=== PATIENT | male | born 1980 | race Caucasian/White ===

== ENCOUNTER → 2017-03-20 15:52 | Outpatient (CLI) | payer MEDICAID, SELFPAY | PROVIDERS: Family Provider Family Medicine; PCP Family Medicine; Visit Provider Otolaryngology | DX: J02.9 Acute pharyngitis, unspecified (principal) | CPT/HCPCS: 87070; 87077 ==

== ENCOUNTER → 2018-06-09 07:30 | Outpatient (CLI) | payer MEDICAID, SELFPAY ==
--- NOTE | 2018-06-09 11:47 | NEURO ---
NCS and/or EMG Patient Report Ordering Doctor: Francois Arias Jr. DATE OF SERVICE: 06/09/18 This is a bilateral upper extremity nerve conduction study and a right upper extremity EMG performed on this 37-year-old male who 8 years ago he had a upper back injury, now experiences abnormal sensations in his first 3 digits of both hands. Bilateral upper extremity sensory and motor nerve conduction studies were performed demonstrating prolongation of the median motor and sensory distal latencies with preservation of amplitudes but mild reduction of conduction velocity bilaterally. The ulnar motor and sensory and radial sensory responses are normal. The median F wave latencies are mildly prolonged compared to the ulnar F-wave latencies. Right upper extremity needle electromyography is performed. Muscles evaluated included the first dorsal interosseous, abductor pollicis brevis, brachioradialis, biceps, triceps and deltoid muscles. The abductor pollicis brevis muscles did demonstrate large motor units with 1+ fibrillation potentials. All other muscles tested demonstrated normal insertional activity with absence of pathologic spontaneous activity. Motor unit potential recruitment pattern and amplitude was otherwise normal. Impression: Abnormal electrophysiologic study of the upper extremities consistent with moderate carpal tunnel syndrome bilaterally at the wrists.
== END ==
PROVIDERS: Family Provider Family Medicine; PCP Family Medicine; Referring Provider Family Medicine; Visit Provider Family Medicine
DX: M54.12 Radiculopathy, cervical region (principal)
CPT/HCPCS: 95886; 95911

== ENCOUNTER → 2018-11-03 10:27 | Outpatient (CLI) | payer MEDICAID, SELFPAY ==
[2016-07-15 13:22] VITALS: BMI 20.8
[2018-11-03 12:55] LABS: ALB/GLOB Ratio 1.3 RATIO (0.9-2.4); AST(SGOT) 23 U/L (15-37); Alanine Aminotransfer ALT/SGPT 27 U/L (16-61); Albumin, Serum 4.3 g/dL (3.2-5.0); Alkaline Phosphatase 76 U/L (45-117); Anion Gap 9 (5-15); BUN 12 mg/dL (7-18); BUN/Creat Ratio 12.5 RATIO (10-20); Calcium,Total 9.3 mg/dL (8.5-10.1); Chloride 105 mmol/L (98-107); Cholesterol 184 mg/dL (200); Creatinine, Serum 0.96 mg/dL (0.70-1.30); EST Glomerular Filtration Rate 94 mL/min (>60); Est Glom Filt Rate - Afr Amer 114 mL/min (>60); Globulin 3.4 g/dL (2.2-4.2); Glucose 77 mg/dL (74-106); High Density Lipoprotein 49 mg/dL; Protein, Total 7.7 g/dL (6.4-8.2); Sodium Level 140 mmol/L (136-145); Thyroid Stim Hormone (TSH) 1.39 uIU/mL (0.358-3.74); Triglycerides 53 mg/dL; Very Low Density Lipoprotein 11 mg/dL (5-40)
[2018-11-06 03:06] LABS: Beef <0.10 kU/L (Class 0); Corn <0.10 kU/L (Class 0); Egg, Whole <0.10 kU/L (Class 0); Milk (Cow) <0.10 kU/L (Class 0); Peanut <0.10 kU/L (Class 0); Pork <0.10 kU/L (Class 0); Soybean <0.10 kU/L (Class 0); Wheat <0.10 kU/L (Class 0)
[2018-11-08 10:12] LABS: Chocolate <0.10 kU/L (Class 0)
== END ==
PROVIDERS: Family Provider Family Medicine; PCP Family Medicine; Referring Provider Family Medicine; Visit Provider Family Medicine
DX: Z00.00 Encounter for general adult medical examination without abnormal findings (principal); T78.40XA Allergy, unspecified, initial encounter
CPT/HCPCS: 36415; 80053; 80061; 84403; 84443; 86003; 86005

== ENCOUNTER → 2019-08-29 08:39 | Outpatient (CLI) | payer MEDICAID, SELFPAY ==
[2019-08-11 09:06] VITALS: BMI 20.8
--- NOTE | 2019-08-29 08:42 | CT_ITS ---
STUDY: CT BRAIN AND SINUSES WITHOUT CONTRAST REASON FOR EXAM: Male, 38 years old. SINUSITIS RADIATION DOSAGE (If Supplied By Facility): CTDIvol = ( 33.06 ) mGy, DLP = ( 871.04 ) mGycm TECHNIQUE: Transaxial CT imaging of the brain was performed without administration of contrast. Individualized dose optimization techniques were used for this CT. COMPARISON: Comparison is made with prior study dated June 07, 1999 FINDINGS: CT BRAIN Normal soft tissue structures. Normal calvarium. Normal size ventricles and extra-axial spaces for the patient''s age. Normal white matter tracts of the cerebral hemispheres. Normal basal ganglia and thalami. Normal brainstem. Normal cerebellum. There is no intracranial hemorrhage. There are no findings of an acute ischemic infarction. CT SINUSES Post Surgical Changes: Prior partial resection of the medial bettencourt of the maxillary sinuses bilaterally. Frontal Sinus and Recess: Complete opacification of the frontal sinuses. Ethmoidal Sinuses: Complete opacification of the ethmoid sinuses with thinning of the bony septations. Maxillary Sinuses: Opacification of the maxillary sinuses bilaterally. Ostiomeatal Complex: Mucosal obliteration of the bilateral maxillary infundibuli. Sphenoid Sinus: Opacification of the sphenoid sinus bilaterally. Sphenoethmoidal Recess: Clear. Nasal Turbinate (Right): Middle Turbinate (Right): Normal. Middle Turbinate (Left): Normal. Inferior Turbinate (Right): Hypertrophy of the right inferior nasal turbinate. Inferior Turbinate (Left): Normal. Nasal Septum: Midline. Nasal Airway: Soft tissue obliteraion of the right nasal airway suggesting polyps. Direct visualization recommended. Cribiform Plate / Anterior Cranial Fossa: Normal. Orbits: Normal. CT/Sinus/Facial Bone IMPRESSION: Pansinusitis. Electronically Signed: Julian Godoy, at 10:03 EDT , Service support ,
== END ==
PROVIDERS: PCP Family Medicine; Referring Provider Otolaryngology; Visit Provider Otolaryngology
DX: J32.9 Chronic sinusitis, unspecified (principal)
CPT/HCPCS: 70486

== ENCOUNTER 2019-09-20 06:03 | Day surgery (SDC) | payer MEDICAID, SELFPAY ==
[2019-08-11 09:06] VITALS: BMI 20.8
[2019-09-15 09:58] LABS: Anion Gap 3 (5-15); BUN 15 mg/dL (7-18); BUN/Creat Ratio 13.6 RATIO (10-20); Chloride 104 mmol/L (98-107); EST Glomerular Filtration Rate 80 mL/min (>60); Est Glom Filt Rate - Afr Amer 96 mL/min (>60); Glucose 111 mg/dL (74-106); Potassium 4.2 mmol/L (3.5-5.1); Sodium Level 136 mmol/L (136-145)
[2019-09-20 06:25] VITALS: BP 116/80; PULSE 67; RESP 16; TEMP 36.3; O2SAT 98; BMI 22.8
[2019-09-20] MEDS: Lactated Ringers 1,000 ML 100 ML IV (06:49)
--- NOTE | 2019-09-20 07:24 | DCINST_ITS ---
You will use the following diet at home:: No restrictions Discharge Activity: Return to Normal Activity Call your doctor if your incision/area has: Sudden Increased Bleeding Additional Dressing/Incision Instructions:: irrigate nose 5 times/day with saline spray Allergies/Adverse Reactions: Allergies amoxicillin [From Augmentin] Allergy (Verified 09/20/19 06:22) Unknown ciprofloxacin [From Cipro] Allergy (Verified 09/20/19 06:22) Hives ciprofloxacin HCl [From Cipro] Allergy (Verified 09/20/19 06:22) Hives clavulanic acid [From Augmentin] Allergy (Verified 09/20/19 06:22) Unknown ibuprofen Allergy (Verified 09/20/19 06:22) Nausea/Vom/Diarrhea levofloxacin [From Levaquin] Allergy (Verified 09/20/19 06:22) Pain in joints sulfamethoxazole [From Bactrim] Allergy (Verified 09/20/19 06:22) Hives trimethoprim [From Bactrim] Allergy (Verified 09/20/19 06:22) Hives Medications to take at Discharge diphenhydramine HCl 25 mg capsule 25 mg PO QHS 12/20/18 albuterol sulfate 90 mcg/actuation aerosol inhaler 1 inh INHALATION BID PRN PRN 03/25/19 fluticasone propionate 44 mcg/actuation HFA aerosol inhaler 1 puff INHALATION BID PRN 03/25/19 levocetirizine 5 mg tablet 5 mg PO DAILY 03/25/19 Cetirizine HCl [Zyrtec] 10 mg PO DAILY 09/12/19 Omeprazole 20 mg PO DAILY 09/12/19 Primary Care Physician: Marco Anotnio Simpson MD [Primary Care Provider] - Test Results: Test results from this visit will be discussed in further detail at your follow- up appointment, if applicable. Please Follow Up With: Raj Spivey MD When: 1 week
--- NOTE | 2019-09-20 07:25 | PCM.OPRPT ---
Problem List (1) Chronic pansinusitis Status: Chronic Report of Operation Date of Procedure: 09/20/19 Pre-Operative Diagnosis: 1. chronic pansinusitis. 2. chronic serous otitis Post-Operative Diagnosis: 1. chronic pansinusitis. 2. chronic serous otitis Surgery/Procedure Performed:: 1. revision endoscopic maxillary antrostomy with removal of contents, right and left. 2. revision total ethmoidectomy with sphenoidotomy, removal of contents, right and left. 3. placement of pressure equalization tubes, right and left. 4. CT guided image navigation Type of Anesthesia:: General Description of Procedure: on the day of the procedure, after appropriate informed consent was obtained, the patient was brought to the operating room and placed in supine position on the operating table. he was placed under general endotracheal anesthesia. the endotracheal tube was secured, the eyes were taped. the left ear was examined by the binocular operating microscope. a speculum was placed. the tympanic membrane was viewed in its entirety and found to be intact with severe myringosclerosis. a radial myringotomy was made and a T tube was placed. the right ear was examined by the binocular operating microscope. a speculum was placed. the tympanic membrane was viewed in its entirety and found to be intact with severe myringosclerosis. a radial myringotomy was made and a T tube was placed. the CT image navigation was set up and accuracy confirmed. the bilateral nasal cavities were decongested with oxymetazoline soaked pledgets. the zero degree endoscope was used to evaluate the left nasal cavity. a large amount of middle meatus polyps were removed with the microdebrider. the maxillary antrostomy was revised with a back biter. polyps were removed. a revision total ethmoidectomy was performed with the microdebrider superiorly to the skull base and laterally to the lamina. a stankewicz maneuver was performed and no laminar defect was noted. a revision sphenoidotomy was performed with the microdebrider and polyps were removed. an upgoing blakesley was used to clear out the frontal recess. hemostasis was achieved with suction cautery and pledgets were placed. the zero degree endoscope was used to evaluate the right nasal cavity. a large amount of middle meatus polyps were removed with the microdebrider. the maxillary antrostomy was revised with a back biter. polyps were removed. a revision total ethmoidectomy was performed with the microdebrider superiorly to the skull base and laterally to the lamina. a stankewicz maneuver was performed and no laminar defect was noted. a revision sphenoidotomy was performed with the microdebrider and polyps were removed. an upgoing blakesley was used to clear out the frontal recess. hemostasis was achieved with suction cautery and pledgets were placed. the patient was awoken from anesthesia and transferred to the PACU in stable condition.
--- NOTE | 2019-09-20 07:30 | ETH_PTH ---
PATIENT: MONALISA CORONA LOC: [facility] [place] U#:[id number] AGE/SX: 38/M ROOM: RE09/20/[address]: Dr. Pantera Spivey MD : 1980 BED: DIS: 09/20/2019 SPEC #: [id number] RECD: 09/20/19 08:58 STATUS: CHRISTOFER CHRISTINA #: [id number] ETHAN: 09/20/19 07:[address]: Pantera Spivey DEPT: SURGICAL PATHOLOGY RECD BY: Tete Lozada ENTERED: 09/20/19 14:41 SP TYPE: ETH TISS OTHR DR: Dr. Marco Antonio Simpson MD Tissues: A - Ethmoid sinus, NOS B - Ethmoid sinus, NOS Procedures: Surgery Specimen Level III HEADER OPERATION: Revision sinus surgery, Navigation PRE-OP DIAGNOSIS: Chronic serous otitis media, bilateral chronic pansinusitis TISSUE SUBMITTED: A - Right sinus contents, B - Left sinus contents MICROSCOPIC DIAGNOSIS A. Right sinus contents, excision: Consistent with chronic sinusitis. B. Left sinus contents, excision: Consistent with chronic sinusitis. AM:michael 09/21/19 MICROSCOPIC DESCRIPTION Slides are reviewed. GROSS DESCRIPTION A - Received in fixative is one container labeled with the patient's name and designated right sinus contents. The specimen consists of multiple irregular fragments of light saunders soft tissue that in aggregate measure 5 x 2 x 0.2 cm. The specimen is totally submitted in one cassette. B - Received in fixative is one container labeled with the patient's name and designated left sinus contents. The specimen consists of multiple irregular fragments of light saunders soft tissue that in aggregate measure 2 x 1.5 x 0.1 cm. The specimen is totally submitted in one cassette. / AM:michael 09/20/19 TC:3 [facility]: [id number] x2
[2019-09-20] MEDS: Oxymetazoline 0.05% 1 SPRAY SPRAY.BTL 15 SPRAY (08:16)
[2019-09-20 08:45] VITALS: BP 116/80; BP 135/93; PULSE 76; RESP 16; TEMP 36.3; O2SAT 97
[2019-09-20 09:00] VITALS: BP 116/80; BP 128/97; PULSE 70; RESP 16; O2SAT 99
[2019-09-20 09:15] VITALS: BP 116/80; BP 131/87; PULSE 98; RESP 16; TEMP 36.5; O2SAT 98
[2019-09-20] MEDS: Acetaminophen 325 MG Tablet 650 MG PO (09:47)
[2019-09-20 10:15] VITALS: BP 116/80; BP 122/82; PULSE 56; RESP 18; TEMP 37.4; O2SAT 99
== END 2019-09-20 10:16 | disposition home or self-care (01) ==
LOC: SDC 06:03 → AC 06:03
PROVIDERS: Anesthesiology; PCP Family Medicine; Referring Provider Otolaryngology; Visit Provider Otolaryngology
PROC: (CPT 31257; principal; 2019-09-20 07:00)
PROC: (CPT 31257; 2019-09-20 07:00)
DX: J32.4 Chronic pansinusitis (principal); H65.23 Chronic serous otitis media, bilateral; Z11.59 Encounter for screening for other viral diseases; J45.909 Unspecified asthma, uncomplicated; K58.9 Irritable bowel syndrome, unspecified; K21.9 Gastro-esophageal reflux disease without esophagitis; Z79.899 Other long term (current) drug therapy; Z87.891 Personal history of nicotine dependence
CPT/HCPCS: 31257; 31267; 69436; 36415; 80048; 87635; 88304; 88305; G2023; J7120; J2405; U0003

== ENCOUNTER → 2019-12-19 11:58 | Outpatient (CLI) | payer MEDICAID, SELFPAY ==
--- NOTE | 2019-12-19 12:00 | RAD_ITS ---
STUDY: X-RAY - ABDOMEN/PELVIS REASON FOR EXAM: Male, 39 years old. right lower abd pain into groin TECHNIQUE: 3 AP views of the abdomen/pelvis. COMPARISON: None. FINDINGS: Normal visualized lung bases. Constipation. Nonobstructive bowel gas pattern. Normal soft tissue structures. Normal visualized osseous structures. RAD/Abd Inc Decub and/or Erect IMPRESSION: Constipation with nonobstructive bowel gas pattern Electronically Signed: Raghu Levin DO at 11:25 EDT Tel , Service support ,
== END ==
PROVIDERS: PCP Family Medicine; Referring Provider Family Medicine; Visit Provider Family Medicine
DX: R10.31 Right lower quadrant pain (principal)
CPT/HCPCS: 74019

== ENCOUNTER → 2019-12-22 | Outpatient (CLI) | payer MEDICAID, SELFPAY ==
[2019-12-22 12:10] LABS: Bacteria 0 SEEN /hpf (None Seen); Mucous, Urine 0 SEEN /hpf (<or=2+); Red Blood Cells-Urine 0 SEEN /hpf (0-5); White Blood Cells 0 SEEN /hpf (0-5)
[2019-12-22 15:27] LABS: Color, Urine Yellow (Yellow); Glucose, Dipstick Normal (Normal); Ketone-Dipstick Negative (Negative); Leukocyte Esterase-Dipstick Negative /ul (Negative); Nitrite-Dipstick Negative (Negative); Occult Blood-Urine Negative /ul (Negative); Protein-Dipstick Negative (Negative); Specific Gravity, Urine 1.005 (1.002-1.030); Urine Bilirubin Dipstick Negative (Negative); Urine Clarity Clear (Clear); Urine Urobilinogen Normal (Normal)
[2019-12-22 15:35] LABS: Squamous Epithelial Cells - UA 0-5 SEEN /hpf (0-5)
== END | disposition home or self-care (01) ==
LOC: LABSPEC 12:08
PROVIDERS: PCP Family Medicine; Referring Provider Family Medicine; Visit Provider Family Medicine
DX: R31.9 Hematuria, unspecified (principal)
CPT/HCPCS: 81001; 87086

== ENCOUNTER 2020-01-02 06:01 | Day surgery (SDC) | payer MEDICAID, SELFPAY ==
[2019-12-27 15:35] VITALS: BMI 23.2
--- NOTE | 2020-01-02 05:50 | HP_ITS ---
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 Required: No Is patient in pain?: No Allergies amoxicillin [From Augmentin] Allergy (Verified 12/27/19 15:36) Unknown ciprofloxacin [From Cipro] Allergy (Verified 12/27/19 15:36) Hives ciprofloxacin HCl [From Cipro] Allergy (Verified 12/27/19 15:36) Hives clavulanic acid [From Augmentin] Allergy (Verified 12/27/19 15:36) Unknown ibuprofen Allergy (Verified 12/27/19 15:36) Nausea/Vom/Diarrhea levofloxacin [From Levaquin] Allergy (Verified 12/27/19 15:36) Pain in joints sulfamethoxazole [From Bactrim] Allergy (Verified 12/27/19 15:36) Hives trimethoprim [From Bactrim] Allergy (Verified 12/27/19 15:36) Hives codeine Adverse Reaction (Verified 12/27/19 15:36) Vomiting Medications diphenhydramine HCl 25 mg capsule 25 mg PO QHS 12/20/18 [History Confirmed 12/27/19] albuterol sulfate 90 mcg/actuation aerosol inhaler 1 inh INHALATION BID PRN PRN 03/25/19 [History Confirmed 12/27/19] fluticasone propionate 44 mcg/actuation HFA aerosol inhaler 1 puff INHALATION BID PRN 03/25/19 [History Confirmed 12/27/19] levocetirizine 5 mg tablet 5 mg PO DAILY 03/25/19 [History Confirmed 12/27/19] Cetirizine HCl [Zyrtec] 10 mg PO DAILY 09/12/19 [History Confirmed 12/27/19] Omeprazole 20 mg PO DAILY 09/12/19 [History Confirmed 12/27/19] [facility] Medical History Family history of colonic polyps (Acute) Family history of malignant neoplasm of colon in father (Acute) Allergies (Acute) Arthritis (Acute) Carpal tunnel syndrome (Acute) IBS (irritable bowel syndrome) (Acute) Syrinx of spinal cord (Acute) Surgical History History of appendectomy (Acute) History of cholecystectomy (Acute) History of placement of ear tubes (Acute) History of sinus surgery (Acute) Family History Father Colon cancer at age 48 Grandmother Colon cancer Aunt Colon cancer Other Heart disease Hypertension Social History (Updated 12/27/19 @ 15:[address] Dino Arias MD) Smoking Status: Former smoker alcohol intake: never substance use type: does not use caffeine: No what type of physical activity do you participate in: none HPI HPI HPI: MONALISA CORONA, is a 39 M who presents to the office today for ongoing consideration for a screening colonoscopy. I saw this patient July 2019. At that point I recommended to him a colonoscopy with possible biopsy or polypectomy as indicated. That was based upon the fact that his father had colon cancer at age 38. The patient also has a sister who had a premalignant polyp removed at age 40. He is noting some slight twinging discomfort in the right lower quadrant particular when he bends over. Thinks he might have a hernia. He had some abdominal films done on December 19, 2019 but those were not remarkable. Possible some constipation. He has not noticed any bright red blood per rectum or melena. He has had recent surgery by Dr. Price removal of the nasal polyps. He claims that for at least 3 years he has had loss of smell. That is currently slightly improved. 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 He frequently has sore low back pain. HPI HPI HPI: MONALISA CORONA, is a 39 M who presents to the office today for ROS General General: No weight change, appetite, fatigue, colon cancer or breast cancer HEENT HEENT: No difficulty swallowing, eye injury, eye surgery, swollen glands or hoarseness Endo Endocrine: No thyroid disease, diabetes mellitus, thyroid cancer, Hair loss, heat intolerance or cold intolerance Skin Skin: Yes rash; no changing moles Musc Musculoskeletal: Yes back problems and arthritis; no rheumatoid arthritis, gout or joint pain Cardio Cardiovascular: No murmur, pacemaker, heart disease, atrial fibrillation, high blood pressure, heart attack, heart stent, palpitations, shortness of breat with exertion or chest pain Psych Psychiatric: Yes depression and anxiety; no hearing voices Resp Respiratory: No shortness of breath, No sleep apnea, No cough, No COPD, Yes asthma, No emphysema, No wheezing Gastro Gastrointestinal: No abdominal pain, No nausea or vomiting, No diarrhea, No constipation, No blood in stool, Yes acid reflux, No hemorrhoids, No ulcers, No gallbladder problem, No black,tarry stools Amrtin Hematologic: No blood thinners, No blood disorders, No bleeding, No anemia, No blood clots Exam Const General: cooperative, healthy appearing, comfortable, no acute distress Nutritional Appearance: average body habitus Orientation: alert, awake HENMT Head: normal to inspection Resp Effort & Inspection: normal respiratory effort Auscultation: clear to auscultation bilaterally Cardio Rate: regular rate Rhythm: regular rhythm Heart Sounds: no murmurs GI Palpation: soft, no hepatosplenomegaly Auscultation: normal bowel sounds Other: Testicles are descended. No tenderness. No mass. I do not detect any varicoceles. I do not detect any inguinal weakness bilaterally. Right femoral pulse 3+. No tenderness at the femoral canal Skin General: no rashes or lesions noted Neuro Cognition: normal cognition Extrem General: no calf tenderness Psych Affect: normal affect Assessment & Plan Problems 1. Family history of malignant neoplasm of colon in father Z80.0 Plan Based upon family history of colon cancer I recommend to the patient a colonoscopy with possible biopsy or polypectomy as indicated. He is aware of the technique, benefit, risk, alternatives. We we will utilize a day and a half bowel prep to assure that he is well cleaned out. I anticipate using monitored anesthesia care. He has had an opportunity to ask and have questions answered. The right lower quadrant pinching distal sensation unclear. Initially I thought he might have a varicocele or possibly a hernia. I cannot detect either on clinical examination. This point the patient's symptoms do not appear to be severe. He will notify us if symptoms or findings change. I appreciate the ongoing opportunity of assisting with his surgical care Copy: Dr. Marco Antonio Arias M.D., F.A.C.S. Plan Detail Goals Decrease spasm Improve ROM Decrease pain Barriers Syrinx Construction work Coding Level of Care Code Off vis,est,level 2 Diagnoses Family history of malignant neoplasm of colon in father Z80.0
--- NOTE | 2020-01-02 06:16 | HP.PCM_ITS ---
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 Is patient in pain?: No Allergies amoxicillin [From Augmentin] Allergy (Verified 12/27/19 15:36) Unknown ciprofloxacin [From Cipro] Allergy (Verified 12/27/19 15:36) Hives ciprofloxacin HCl [From Cipro] Allergy (Verified 12/27/19 15:36) Hives clavulanic acid [From Augmentin] Allergy (Verified 12/27/19 15:36) Unknown ibuprofen Allergy (Verified 12/27/19 15:36) Nausea/Vom/Diarrhea levofloxacin [From Levaquin] Allergy (Verified 12/27/19 15:36) Pain in joints sulfamethoxazole [From Bactrim] Allergy (Verified 12/27/19 15:36) Hives trimethoprim [From Bactrim] Allergy (Verified 12/27/19 15:36) Hives codeine Adverse Reaction (Verified 12/27/19 15:36) Vomiting Medications diphenhydramine HCl 25 mg capsule 25 mg PO QHS 12/20/18 [History Confirmed 12/27/19] albuterol sulfate 90 mcg/actuation aerosol inhaler 1 inh INHALATION BID PRN PRN 03/25/19 [History Confirmed 12/27/19] fluticasone propionate 44 mcg/actuation HFA aerosol inhaler 1 puff INHALATION BID PRN 03/25/19 [History Confirmed 12/27/19] levocetirizine 5 mg tablet 5 mg PO DAILY 03/25/19 [History Confirmed 12/27/19] Cetirizine HCl [Zyrtec] 10 mg PO DAILY 09/12/19 [History Confirmed 12/27/19] Omeprazole 20 mg PO DAILY 09/12/19 [History Confirmed 12/27/19] [facility] Medical History Family history of colonic polyps (Acute) Family history of malignant neoplasm of colon in father (Acute) Allergies (Acute) Arthritis (Acute) Carpal tunnel syndrome (Acute) IBS (irritable bowel syndrome) (Acute) Syrinx of spinal cord (Acute) Surgical History History of appendectomy (Acute) History of cholecystectomy (Acute) History of placement of ear tubes (Acute) History of sinus surgery (Acute) Family History Father Colon cancer at age 48 Grandmother Colon cancer Aunt Colon cancer Other Heart disease Hypertension Social History (Updated 12/27/19 @ 15:[address] Dino Arias MD) Smoking Status: Former smoker alcohol intake: never substance use type: does not use caffeine: No what type of physical activity do you participate in: none HPI HPI HPI: MONALISA CORONA, is a 39 M who presents to the office today for ongoing consideration for a screening colonoscopy. I saw this patient July 2019. At that point I recommended to him a colonoscopy with possible biopsy or polypectomy as indicated. That was based upon the fact that his father had colon cancer at age 38. The patient also has a sister who had a premalignant polyp removed at age 40. He is noting some slight twinging discomfort in the right lower quadrant particular when he bends over. Thinks he might have a hernia. He had some abdominal films done on December 19, 2019 but those were not remarkable. Possible some constipation. He has not noticed any bright red blood per rectum or melena. He has had recent surgery by Dr. Price removal of the nasal polyps. He claims that for at least 3 years he has had loss of smell. That is currently slightly improved. 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 He frequently has sore low back pain. HPI HPI HPI: MONALISA CORONA, is a 39 M who presents to the office today for ROS General General: No weight change, appetite, fatigue, colon cancer or breast cancer HEENT HEENT: No difficulty swallowing, eye injury, eye surgery, swollen glands or hoarseness Endo Endocrine: No thyroid disease, diabetes mellitus, thyroid cancer, Hair loss, heat intolerance or cold intolerance Skin Skin: Yes rash; no changing moles Musc Musculoskeletal: Yes back problems and arthritis; no rheumatoid arthritis, gout or joint pain Cardio Cardiovascular: No murmur, pacemaker, heart disease, atrial fibrillation, high blood pressure, heart attack, heart stent, palpitations, shortness of breat with exertion or chest pain Psych Psychiatric: Yes depression and anxiety; no hearing voices Resp Respiratory: No shortness of breath, No sleep apnea, No cough, No COPD, Yes asthma, No emphysema, No wheezing Gastro Gastrointestinal: No abdominal pain, No nausea or vomiting, No diarrhea, No constipation, No blood in stool, Yes acid reflux, No hemorrhoids, No ulcers, No gallbladder problem, No black,tarry stools Martin Hematologic: No blood thinners, No blood disorders, No bleeding, No anemia, No blood clots Exam Const General: cooperative, healthy appearing, comfortable, no acute distress Nutritional Appearance: average body habitus Orientation: alert, awake [facility] Head: normal to inspection Resp Effort & Inspection: normal respiratory effort Auscultation: clear to auscultation bilaterally Cardio Rate: regular rate Rhythm: regular rhythm Heart Sounds: no murmurs GI Palpation: soft, no hepatosplenomegaly Auscultation: normal bowel sounds Other: Testicles are descended. No tenderness. No mass. I do not detect any varicoceles. I do not detect any inguinal weakness bilaterally. Right femoral pulse 3+. No tenderness at the femoral canal Skin General: no rashes or lesions noted Neuro Cognition: normal cognition Extrem General: no calf tenderness Psych Affect: normal affect Assessment & Plan Problems 1. Family history of malignant neoplasm of colon in father Z80.0 Plan Based upon family history of colon cancer I recommend to the patient a colonoscopy with possible biopsy or polypectomy as indicated. He is aware of the technique, benefit, risk, alternatives. We we will utilize a day and a half bowel prep to assure that he is well cleaned out. I anticipate using monitored anesthesia care. He has had an opportunity to ask and have questions answered. The right lower quadrant pinching distal sensation unclear. Initially I thought he might have a varicocele or possibly a hernia. I cannot detect either on clinical examination. This point the patient's symptoms do not appear to be severe. He will notify us if symptoms or findings change. I appreciate the ongoing opportunity of assisting with his surgical care Copy: Dr. Marco Antonio Arias M.D., F.A.C.S. Plan Detail Goals Decrease spasm Improve ROM Decrease pain Barriers Syrinx Construction work Coding Level of Care Code Off vis,est,level 2 Diagnoses Family history of malignant neoplasm of colon in father Z80.0 I have re-examined the patient. There are no clinical changes since date of exam. Procedure Criteria Procedure Type: Elective COVID Risk Discussion: The surgeon/proceduralist and patient have discussed in detail the risk of exposure to and/or potential harm posed by the COVID-19 virus with having a surgery/procedure at this time versus the risk of delaying the surgery/procedure. It is not possible to know either the risk of delaying the surgery or procedure or chance of getting an infection with perfect accuracy, but a joint decision was made between the patient and the surgeon/proceduralist to proceed at this time with the scheduled surgery/procedure as indicated on the consent form.
[2020-01-02 06:28] VITALS: BP 128/87; PULSE 68; RESP 16; TEMP 36.4; O2SAT 99; BMI 22.7
[2020-01-02] MEDS: Lactated Ringers 1,000 ML 100 ML IV (06:40)
[2020-01-02 07:15] VITALS: BP 110/68; BP 128/87; PULSE 72; RESP 16; TEMP 36.2; O2SAT 96
--- NOTE | 2020-01-02 07:17 | OP.CCLET_ITS ---
01/02/2020 Marco Antonio Simpson MD [address] [id number] Re : Colonoscopy procedure for Marcelino Malcolm Dear Dr. Simpson This procedure was performed on Thursday, January 02, 2020. My impressions and recommendations are as follows: Impressions : - The entire examined colon is normal. - No specimens collected. Recommendations : - Discharge patient to home. - Resume previous diet. - Continue present medications. - Repeat colonoscopy in 5 years for surveillance. My findings are described in the full procedure note, which is enclosed. If I can be of further assistance, please feel free to contact me at Doctor phone number(s): Work: . Sincerely, Dino Arias MD 01/02/2020 7:17:11 AM This report has been signed electronically.
--- NOTE | 2020-01-02 07:17 | OP.COLON_ITS ---
Patient Name: Marcelino Malcolm Procedure Date: 01/02/2020 6:53 AM Date of : 1980 Age: 39 Procedure: Colonoscopy Indications: Screening in patient at increased risk: Family history of 1st-degree relative with colorectal cancer before age 60 years Providers: Dino Arias MD Referring MD: Marco Antonio Simpson MD Medicines: See the Anesthesia note for documentation of the administered medications Patient Profile: Last Colonoscopy: none. The patient's first colonoscopy is today. Complications: No immediate complications. Procedure: Pre-Anesthesia Assessment: - Prior to the procedure, a History and Physical was performed, and patient medications and allergies were reviewed. The patient's tolerance of previous anesthesia was also reviewed. The risks and benefits of the procedure and the sedation options and risks were discussed with the patient. All questions were answered, and informed consent was obtained. Prior Anticoagulants: The patient has taken no previous anticoagulant or antiplatelet agents. ASA Grade Assessment: II - A patient with mild systemic disease. After reviewing the risks and benefits, the patient was deemed in satisfactory condition to undergo the procedure. After I obtained informed consent, the scope was passed under direct vision. Throughout the procedure, the patient's blood pressure, pulse, and oxygen saturations were monitored continuously. The colonoscope was introduced through the anus and advanced to the cecum, identified by appendiceal orifice and ileocecal valve. The colonoscopy was performed without difficulty. The patient tolerated the procedure well. The quality of the bowel preparation was good. The ileocecal valve and the appendiceal orifice were photographed. Scope In: 7:02:02 AM Scope Withdrawal Time 0 hours 6 minutes 26 seconds Scope Out: 7:12:15 AM Total Procedure Duration Time 0 hours 10 minutes 13 seconds Findings: The perianal and digital rectal examinations were normal. The colon (entire examined portion) appeared normal. Impression: - The entire examined colon is normal. - No specimens collected. Recommendation: - Discharge patient to home. - Resume previous diet. - Continue present medications. - Repeat colonoscopy in 5 years for surveillance. Procedure Code(s): --- Professional --- 25846, Colonoscopy, flexible; diagnostic, including collection of specimen(s) by brushing or washing, when performed (separate procedure) Diagnosis Code(s): --- Professional --- Z80.0, Family history of malignant neoplasm of digestive organs CPT copyright 2017 [employer]. All rights reserved. The codes documented in this report are preliminary and upon workers compensation administrator review may be revised to meet current compliance requirements. Dino Arias MD 01/02/2020 7:17:11 AM This report has been signed electronically. Number of Addenda: 0 Note Initiated On: 01/02/2020 6:53 AM
[2020-01-02 07:20] VITALS: BP 112/70; BP 128/87; PULSE 74; RESP 16; O2SAT 95
[2020-01-02 07:25] VITALS: BP 110/66; BP 128/87; PULSE 70; RESP 16; O2SAT 95
[2020-01-02 07:30] VITALS: BP 106/70; BP 128/87; PULSE 65; RESP 16; TEMP 36; O2SAT 97
[2020-01-02 07:45] VITALS: BP 128/87
== END 2020-01-02 08:13 | disposition home or self-care (01) ==
LOC: EN 06:02 → AC 06:02
PROVIDERS: PCP Family Medicine; Referring Provider Family Medicine; Visit Provider Surgery
PROC: 0DJD8ZZ Inspection of Lower Intestinal Tract, Via Natural or Artificial Opening Endoscopic (ICD-10-PCS; CPT 45378; principal; 2020-01-02 06:55)
DX: Z12.11 Encounter for screening for malignant neoplasm of colon (principal); R10.31 Right lower quadrant pain; M54.5 Low back pain; K58.9 Irritable bowel syndrome, unspecified; J45.909 Unspecified asthma, uncomplicated; F32.9 Major depressive disorder, single episode, unspecified; F41.9 Anxiety disorder, unspecified; Z79.899 Other long term (current) drug therapy; Z87.891 Personal history of nicotine dependence; Z80.0 Family history of malignant neoplasm of digestive organs
CPT/HCPCS: 45378; 87426; C9803; J7120

== ENCOUNTER → 2022-07-16 | Outpatient (CLI) | payer OTHER, SELFPAY ==
[2022-07-16 16:41] LABS: Absolute Lymphocyte Count 2.03 X10^3/uL (0.83-4.51); Absolute Neutrophil Count 4.3 X10^3/uL (2.0-7.7); Basophil# 0.03 X10^3/uL; Basophil% 0.4 % (0-1); Eosinophil# 0.38 X10^3/uL; Eosinophils% 5.2 % (0-5); Hematocrit 44.5 % (40-54); Lymphocyte # 2.03 X10^3/ul (0.83-4.51); Lymphocyte % 27.8 % (19-41); Mean Corp Hgb Conc 33.7 g/dL (32-36); Mean Corpuscular Hgb 31.1 pg (27.0-32.0); Mean Corpuscular Volume 92.1 fL (80-94); Mean Platelet Vol. 10.2 fl (6.2-12.0); Monocyte# 0.58 X10^3/uL; NRBC Flagged by Analyzer 0 % (0-5); Neutrophil # 4.25 X10^3/uL (2.7-7.7); Neutrophil % 58.3 % (47-70); Platelet Count 261 K/mm3 (150-450); RBC Distribution Width CV 11.7 % (11.6-14.6); RBC Distribution Width SD 39.3 fl (35.1-43.9); Red Blood Count 4.83 M/mm3 (4.6-6.2); White Blood Count 7.3 K/mm3 (4.4-11.0)
[2022-07-16 17:21] LABS: Vitamin D,25 Hydroxy 39.2 ng/mL
[2022-07-16 17:27] LABS: ALB/GLOB Ratio 1.4 RATIO (0.9-2.4); AST(SGOT) 15 U/L (15-37); Alanine Aminotransfer ALT/SGPT 22 U/L (16-61); Albumin, Serum 4.2 g/dL (3.2-5.0); Alkaline Phosphatase 72 U/L (45-117); Anion Gap 5 (5-15); BUN 17 mg/dL (7-18); BUN/Creat Ratio 18.5 RATIO (10-20); Calcium,Total 9.1 mg/dL (8.5-10.1); Chloride 106 mmol/L (98-107); Creatinine, Serum 0.92 mg/dL (0.70-1.30); EST Glomerular Filtration Rate 97 mL/min (>60); Est Glom Filt Rate - Afr Amer 117 mL/min (>60); Globulin 3.1 g/dL (2.2-4.2); Glucose 89 mg/dL (74-106); PSA,Total- Diagnostic 0.49 ng/mL (0.0-4.0); Potassium 3.9 mmol/L (3.5-5.1); Protein, Total 7.3 g/dL (6.4-8.2); Sodium Level 139 mmol/L (136-145)
== END | disposition home or self-care (01) ==
LOC: BIMLAB 16:04
PROVIDERS: PCP Internal Medicine; Referring Provider Internal Medicine; Visit Provider Internal Medicine
DX: F32.A Depression, unspecified (principal); R39.198 Other difficulties with micturition
CPT/HCPCS: 36415; 80053; 82306; 84153; 85025

== ENCOUNTER → 2022-09-25 | Outpatient (CLI) | payer OTHER, SELFPAY ==
[2022-09-25 12:42] LABS: Absolute Lymphocyte Count 1.46 X10^3/uL (0.83-4.51); Absolute Neutrophil Count 2.8 X10^3/uL (2.0-7.7); Basophil# 0.02 X10^3/uL; Basophil% 0.4 % (0-1); Eosinophil# 0.24 X10^3/uL; Eosinophils% 4.8 % (0-5); Hematocrit 47.4 % (40-54); Hemoglobin 16.3 g/dL (13.0-16.5); Lymphocyte # 1.46 X10^3/ul (0.83-4.51); Lymphocyte % 29.5 % (19-41); Mean Corp Hgb Conc 34.4 g/dL (32-36); Mean Corpuscular Hgb 31.2 pg (27.0-32.0); Mean Corpuscular Volume 90.8 fL (80-94); Mean Platelet Vol. 10.1 fl (6.2-12.0); Monocyte# 0.44 X10^3/uL; Monocyte% 8.9 % (0-10); NRBC Flagged by Analyzer 0 % (0-5); Neutrophil # 2.77 X10^3/uL (2.7-7.7); Platelet Count 276 K/mm3 (150-450); RBC Distribution Width CV 11.8 % (11.6-14.6); RBC Distribution Width SD 39.3 fl (35.1-43.9); Red Blood Count 5.22 M/mm3 (4.6-6.2)
[2022-09-25 12:54] LABS: Erythrocyte Sedimentation Rate < 1 mm/hr (0-20)
[2022-09-25 13:24] LABS: CRP < 2.90 mg/L (0.0-3.0); Thyroid Stim Hormone (TSH) 2.23 uIU/mL (0.358-3.74)
[2022-09-26 13:08] LABS: ANTINUCLEAR ANTIBODIES DIRECT Negative (Negative); Anti-Centromere B Ab <0.2 AI (0.0-0.9); Anti-Chromatin <0.2 AI (0.0-0.9); Anti-Jo <0.2 AI (0.0-0.9); Anti-Scleroderma-70 AB <0.2 AI (0.0-0.9); Anti-dsDNA Ab <1 IU/mL (0-9); RNP Ab 0.2 AI (0.0-0.9); SJOGREN'S Anti-SS-A test < 0.2 AI (0.0-0.9); SJOGREN'S Anti-SS-B test < 0.2 AI (0.0-0.9); Smith Ab <0.2 AI (0.0-0.9)
[2022-09-26 14:09] LABS: CMV Acute Antibody IgM < 30.0 AU/mL (0.0-29.9); EBV Acute VCA IgM < 36.0 U/mL (0.0-35.9); EBV Nuclear Antigen IgG > 600.0 U/mL (0.0-17.9)
== END | disposition home or self-care (01) ==
LOC: BIMLAB 10:34
PROVIDERS: PCP Internal Medicine; Referring Provider Internal Medicine; Visit Provider Internal Medicine
DX: R59.1 Generalized enlarged lymph nodes (principal)
CPT/HCPCS: 36415; 84443; 85025; 85652; 86038; 86140; 86225; 86235; 86645; 86664; 86665

== ENCOUNTER → 2022-10-06 | Outpatient (CLI) | payer OTHER, SELFPAY ==
--- NOTE | 2022-10-06 07:01 | CT_ITS ---
STUDY: CT SOFT TISSUE NECK WITH CONTRAST REASON FOR EXAM: Male, 41 years old. Cervical adenopathy RADIATION DOSAGE (If Supplied By Facility): CTDIvol = ( 15.39 ) mGy, DLP = ( 457.61 ) mGycm TECHNIQUE: The patient was scanned in a multi-detector CT scanner. High resolution transaxial imaging was performed following intravenous administration of IV 75mL Isovue-370. Sagittal and coronal images were reconstructed. Individualized dose optimization techniques were used for this CT. COMPARISON: None. FINDINGS: Normal bilateral parotid glands. Normal bilateral machining department supervisor spaces. Normal bilateral parapharyngeal spaces. Normal bilateral carotid spaces. Normal bilateral sublingual and submandibular glands and spaces. Normal visualized nasopharynx. Normal retropharyngeal space. Normal perivertebral space. Normal visualized bilateral faucial tonsils. The visualized tongue, tongue base and oropharynx are normal. The visualized cervical lymph nodes (levels I-) are within normal size limits, and maintain normal morphology. There is no demonstrated solid or cystic mass lesion. There is no abnormal contrast enhancement. Normal epiglottis, bilateral vallecula and hypopharynx. The pre-epiglottic and paraglottic adipose spaces are normal. Normal visualized bilateral piriform sinuses, aryepiglottic folds, vocal cords, and arytenoid-cricoid articulations. Normal subglottic trachea. Normal bilateral lobes of the thyroid gland. Normal visualized pulmonary apices. There is opacification of the ethmoid sinuses with the resorption of the bony trabeculations. There is opacification of the sphenoid sinuses as well as the frontal sinuses bilaterally. Partial opacification of the right maxillary sinus and mucosal thickening of the left maxillary sinus. There has been prior resection of the medial bettencourt of both maxillary sinuses. Nasal polyposis should be ruled out. Normal visualized cervical spine. CT/Soft Tissue Neck WITH Contrast IMPRESSION: Pansinusitis. Nasal polyposis should be ruled out. Electronically Signed: Julian Godoy MD at 12:10 EDT ,
== END | disposition home or self-care (01) ==
PROVIDERS: PCP Internal Medicine; Referring Provider Internal Medicine; Visit Provider Internal Medicine
DX: R59.1 Generalized enlarged lymph nodes (principal)
CPT/HCPCS: 70491; Q9967